=== PATIENT | female | born 1940 | race Caucasian/White ===

== ENCOUNTER 2022-02-04 10:03 | Outpatient (CLI) | payer MEDICARE | END 2022-02-04 10:04 | disposition home or self-care (01) | LOC: BICRAD 10:03 | PROVIDERS: ATTEND Internal Medicine | DX: M25.461 Effusion, right knee (principal); Z96.651 Presence of right artificial knee joint ==

== ENCOUNTER 2022-02-16 14:52 | Outpatient (CLI) | payer MEDICARE | END 2022-02-16 14:53 | disposition home or self-care (01) | LOC: BICMAMMO 14:52 | PROVIDERS: ATTEND Internal Medicine | DX: Z13.820 Encounter for screening for osteoporosis (principal); Z78.0 Asymptomatic menopausal state; M85.852 Other specified disorders of bone density and structure, left thigh | CPT/HCPCS: 77080 ==

== ENCOUNTER 2022-04-15 13:41 | Inpatient (IN) | payer OTHER, MEDICARE ==
[2022-04-15 14:38] LABS: #Basophils 0.1 thou/uL (0.0-0.2); #Eosinphils 0.1 thou/uL (0.0-0.7); #Lymphocytes 1.1 thou/uL (1.20-3.40); #Monocytes 0.6 thou/uL (0.11-0.59); #Neutrophils 7.5 thou/uL (1.40-6.50); %Basophils 0.6 % (0.0-1.0); %Eosinophils 0.8 % (0.0-10.0); %Lymphocytes 11.8 % (21.0-51.0); %Monocytes 6.7 % (0.0-10.0); %Neutrophils 80.1 % (42.0-75.0); Hemoglobin 13.7 g/dL (12.0-16.0); Mean Corpuscular HGB CONC 34.7 g/dL (32.0-36.0); Mean Corpuscular Hemoglobin 34.5 pg (27.0-31.0); Mean Corpuscular Volume 99.4 fl (78.0-98.0); Mean Platelet Volume 8.4 fL (7.4-10.4); Platelet Count 159 10x3/uL (130-400); RBC Distribution Width 12.3 % (11.5-14.5); Red Blood Cell (RBC) Count 3.98 mill/uL (4.20-5.40); White Blood Cell (WBC) Count 9.4 10x3/uL (4.8-10.8)
[2022-04-15] MEDS ORDERED: Ondansetron PF 4 MG/2 ML Vial ONE (14:38)
[2022-04-15] MEDS ORDERED: Morphine 4 MG/ML VIAL ONE (14:38)
[2022-04-15 14:47] LABS: INR-International Normal Ratio 0.9; PTT 32.9 sec (22.9-36.1); Prothrombin Time 12.8 sec (12.0-14.7)
[2022-04-15 14:57] LABS: ALT (SGPT) 22 U/L (8-55); AST (SGOT) 20 U/L (5-34); Albumin 4.3 g/dL (3.4-4.8); Alkaline Phosphatase 83 U/L (40-110); Anion Gap 12 mmol/L (10-20); BUN (Urea Nitrogen) 22 mg/dL (9.8-20.1); Bilirubin, Total 0.6 mg/dL (0.2-1.2); Calc. Creatinine Clearance 0 mL/min (70-130); Calcium 9.7 mg/dL (7.8-10.44); Carbon Dioxide 23 mmol/L (23-31); Chloride 108 mmol/L (98-107); Estimated GFR 79; Globulin 2.7 g/dL (2.4-3.5); Glucose 104 mg/dL (83-110); Potassium 4.1 mmol/L (3.5-5.1); Sodium 139 mmol/L (136-145)
[2022-04-15] MEDS ORDERED: Morphine 2 MG/ML VIAL SLOW IVP PRN (16:08)
[2022-04-15] MEDS ORDERED: hydrALAZINE 20 MG/ML VIAL SLOW IVP PRN (16:08)
[2022-04-15] MEDS ORDERED: TETANUS, DIPHTHERIA TOX,ADULT (TDVAX) 0.5 ML VIAL IM ONE (16:08)
[2022-04-15] MEDS ORDERED: Ipratropium/Albuterol 3 ML NEB NEB PRN (16:08)
[2022-04-15] MEDS ORDERED: Ondansetron PF 4 MG/2 ML Vial IVP PRN (16:08)
[2022-04-15] MEDS ORDERED: Ketorolac Tromethamine 30 MG/ML VIAL IVP SCH ×2 (16:15→18:30)
[2022-04-15] MEDS: Cholestyramine/Aspartame 4 gm Packet PO SCH ×2 (20:26→22:19)
[2022-04-15] MEDS: Sodium Chloride 0.9% 1,000 ML IV SCH (20:33)
[2022-04-15] MEDS: traMADol HCl 50 MG TAB PO SCH (20:34)
[2022-04-15] MEDS: Acetaminophen 500 MG TAB PO SCH (20:37)
[2022-04-15] MEDS: Senokot S 8.6-50 MG TAB PO SCH (20:40)
[2022-04-15] MEDS: Famotidine/PF 20 mg/2ml Vial SLOW IVP SCH (20:40)
[2022-04-16] MEDS: Acetaminophen 500 MG TAB PO SCH ×4 (01:14→18:26)
[2022-04-16] MEDS: traMADol HCl 50 MG TAB PO SCH ×4 (01:15→18:25)
[2022-04-16] MEDS: Sodium Chloride 0.9% 1,000 ML IV SCH ×2 (02:40→05:09)
[2022-04-16] MEDS: Ketorolac Tromethamine 30 MG/ML VIAL IVP SCH ×4 (02:44→20:15)
[2022-04-16 02:50] LABS: SARS-CoV-2 NAA Rapid Test Not Detected (NotDetected)
[2022-04-16 05:37] LABS: #Eosinphils 0.2 thou/uL (0.0-0.7); #Lymphocytes 1.2 thou/uL (1.20-3.40); #Monocytes 0.6 thou/uL (0.11-0.59); #Neutrophils 4.4 thou/uL (1.40-6.50); %Basophils 0.3 % (0.0-1.0); %Eosinophils 2.9 % (0.0-10.0); %Lymphocytes 18.8 % (21.0-51.0); %Monocytes 9.3 % (0.0-10.0); %Neutrophils 68.7 % (42.0-75.0); Hemoglobin 11.2 g/dL (12.0-16.0); Mean Corpuscular HGB CONC 34.3 g/dL (32.0-36.0); Mean Corpuscular Hemoglobin 34.3 pg (27.0-31.0); Mean Platelet Volume 8.5 fL (7.4-10.4); Platelet Count 130 10x3/uL (130-400); RBC Distribution Width 12.4 % (11.5-14.5); Red Blood Cell (RBC) Count 3.26 mill/uL (4.20-5.40); White Blood Cell (WBC) Count 6.5 10x3/uL (4.8-10.8)
[2022-04-16 06:10] LABS: Phosphorus 3.3 mg/dL (2.3-4.7)
[2022-04-16 06:12] LABS: Anion Gap 11 mmol/L (10-20); BUN (Urea Nitrogen) 22 mg/dL (9.8-20.1); Calc. Creatinine Clearance 76 mL/min (70-130); Calcium 8.8 mg/dL (7.8-10.44); Carbon Dioxide 22 mmol/L (23-31); Chloride 111 mmol/L (98-107); Estimated GFR 80; Glucose 94 mg/dL (83-110); Magnesium 1.8 mg/dL (1.6-2.6); Potassium 4.4 mmol/L (3.5-5.1); Sodium 140 mmol/L (136-145)
[2022-04-16] MEDS: Senokot S 8.6-50 MG TAB PO SCH ×3 (08:12→20:16)
[2022-04-16] MEDS: Amlodipine 5 MG TAB PO SCH (08:12)
[2022-04-16] MEDS: Famotidine/PF 20 mg/2ml Vial SLOW IVP SCH ×2 (08:13→20:16)
[2022-04-16] MEDS: Polyethylene Glycol 3350 17 GM Packet PO SCH (08:14)
[2022-04-16] MEDS ORDERED: CEFAZOLIN 2 GM in Sodium Chloride 0.9% 100 ML IVPB SCH (09:00)
[2022-04-16] MEDS: Cholestyramine/Aspartame 4 gm Packet PO SCH ×2 (11:01→21:40)
[2022-04-16] MEDS ORDERED: Fentanyl 250 MCG/5 ML VIAL ONE (11:57)
[2022-04-16] MEDS ORDERED: Ketamine 50 MG/ML (10ML VIAL) ONE (11:58)
[2022-04-16] MEDS ORDERED: CEFAZOLIN 2 GM VIAL ONE (12:03)
[2022-04-16] MEDS ORDERED: Sodium Chloride 0.9% 100 ML ONE (12:03)
[2022-04-16] MEDS ORDERED: Rocuronium Bromide 10 MG/ML (10ML VIAL) ONE (12:17)
[2022-04-16] MEDS ORDERED: PROPOFOL 200 MG/20 ML VIAL ONE (12:17)
[2022-04-16] MEDS ORDERED: Ondansetron PF 4 MG/2 ML Vial ONE (12:17)
[2022-04-16] MEDS ORDERED: Lidocaine 1% PF 5 ML VIAL ONE (12:17)
[2022-04-16] MEDS ORDERED: Morphine Sulfate 2 MG/ML SYRINGE SLOW IVP PRN (13:21)
[2022-04-16] MEDS ORDERED: Promethazine HCl 25 MG/ML VIAL IM PRN (13:21)
[2022-04-16] MEDS ORDERED: Promethazine HCl 25 MG/ML VIAL IVPB PRN (13:21)
[2022-04-16] MEDS ORDERED: HYDROmorphone 2 MG/ML VIAL SLOW IVP PRN (13:21)
[2022-04-16] MEDS ORDERED: Ondansetron HCl/PF 4 MG/2 ML Vial IVP PRN (13:21)
[2022-04-16] MEDS ORDERED: PACU-Morphine 4MG/ML VIAL SLOW IVP PRN (13:21)
[2022-04-16] MEDS ORDERED: SUGAMMADEX SODIUM 200 MG/2 ML VIAL ONE (13:29)
[2022-04-16] MEDS ORDERED: Ketorolac Tromethamine 30 MG/ML VIAL ONE (14:43)
[2022-04-16] MEDS ORDERED: Fentanyl 100 MCG/2 ML VIAL ONE (14:51)
[2022-04-16] MEDS: CEFAZOLIN 2 GM in Sodium Chloride 0.9% 100 ML IVPB SCH (20:16)
[2022-04-16] MEDS: Rosuvastatin 5 MG TAB PO SCH (20:16)
[2022-04-17] MEDS: Ketorolac Tromethamine 30 MG/ML VIAL IVP SCH (00:55)
[2022-04-17] MEDS: traMADol HCl 50 MG TAB PO SCH ×5 (00:55→23:30)
[2022-04-17] MEDS: Acetaminophen 500 MG TAB PO SCH ×5 (00:56→23:30)
[2022-04-17] MEDS: CEFAZOLIN 2 GM in Sodium Chloride 0.9% 100 ML IVPB SCH (05:42)
[2022-04-17 06:45] LABS: #Eosinphils 0.1 thou/uL (0.0-0.7); #Lymphocytes 0.4 thou/uL (1.20-3.40); #Monocytes 0.5 thou/uL (0.11-0.59); %Eosinophils 0.6 % (0.0-10.0); %Lymphocytes 3.2 % (21.0-51.0); %Monocytes 4.9 % (0.0-10.0); %Neutrophils 91.3 % (42.0-75.0); Hemoglobin 11.2 g/dL (12.0-16.0); Mean Corpuscular HGB CONC 34.2 g/dL (32.0-36.0); Mean Corpuscular Hemoglobin 34.6 pg (27.0-31.0); Mean Platelet Volume 8.8 fL (7.4-10.4); Platelet Count 128 10x3/uL (130-400); RBC Distribution Width 12.2 % (11.5-14.5); Red Blood Cell (RBC) Count 3.23 mill/uL (4.20-5.40); White Blood Cell (WBC) Count 10.9 10x3/uL (4.8-10.8)
[2022-04-17 06:52] LABS: Anion Gap 10 mmol/L (10-20); BUN (Urea Nitrogen) 15 mg/dL (9.8-20.1); Calc. Creatinine Clearance 79 mL/min (70-130); Calcium 8.4 mg/dL (7.8-10.44); Carbon Dioxide 24 mmol/L (23-31); Chloride 110 mmol/L (98-107); Estimated GFR 84; Glucose 150 mg/dL (83-110); Magnesium 1.7 mg/dL (1.6-2.6); Phosphorus 2.6 mg/dL (2.3-4.7); Potassium 3.9 mmol/L (3.5-5.1); Sodium 140 mmol/L (136-145)
[2022-04-17] MEDS ORDERED: Magnesium 2 GM/50 ML(in water) 2 GM in Premix Bag 1 BAG IVPB SCH (07:30)
[2022-04-17] MEDS: Senokot S 8.6-50 MG TAB PO SCH ×2 (09:04→20:15)
[2022-04-17] MEDS: Losartan 25 MG TAB PO SCH (09:04)
[2022-04-17] MEDS: Amlodipine 5 MG TAB PO SCH (09:05)
[2022-04-17] MEDS: Aspirin 81 mg Enteric Coated Tablet PO SCH ×2 (09:05→20:16)
[2022-04-17] MEDS: Famotidine/PF 20 mg/2ml Vial SLOW IVP SCH ×2 (09:05→20:14)
[2022-04-17] MEDS: Polyethylene Glycol 3350 17 GM Packet PO SCH (09:06)
[2022-04-17] MEDS: Cholestyramine/Aspartame 4 gm Packet PO SCH ×2 (09:06→21:45)
[2022-04-17] MEDS: traMADol HCl 50 MG TAB PO PRN (09:08)
[2022-04-17] MEDS: Rosuvastatin 5 MG TAB PO SCH (20:15)
[2022-04-18] MEDS: Acetaminophen 500 MG TAB PO SCH ×3 (05:27→18:39)
[2022-04-18] MEDS: traMADol HCl 50 MG TAB PO SCH ×3 (05:27→18:25)
[2022-04-18 07:07] LABS: #Eosinphils 0.4 thou/uL (0.0-0.7); #Lymphocytes 1.2 thou/uL (1.20-3.40); #Monocytes 0.8 thou/uL (0.11-0.59); #Neutrophils 6.7 thou/uL (1.40-6.50); %Eosinophils 4.1 % (0.0-10.0); %Lymphocytes 13.3 % (21.0-51.0); %Monocytes 8.7 % (0.0-10.0); %Neutrophils 73.9 % (42.0-75.0); Mean Corpuscular HGB CONC 33.2 g/dL (32.0-36.0); Mean Corpuscular Hemoglobin 33.8 pg (27.0-31.0); Mean Platelet Volume 8.6 fL (7.4-10.4); Platelet Count 126 10x3/uL (130-400); RBC Distribution Width 12.6 % (11.5-14.5); Red Blood Cell (RBC) Count 2.97 mill/uL (4.20-5.40); White Blood Cell (WBC) Count 9.1 10x3/uL (4.8-10.8)
[2022-04-18] MEDS ORDERED: Senokot S 8.6-50 MG TAB PO SCH (09:00)
[2022-04-18] MEDS ORDERED: Polyethylene Glycol 3350 17 GM Packet PO SCH (09:00)
[2022-04-18] MEDS ORDERED: Famotidine 20 MG TAB PO SCH (09:00)
[2022-04-18] MEDS: Amlodipine 5 MG TAB PO SCH (09:46)
[2022-04-18] MEDS: Aspirin 81 mg Enteric Coated Tablet PO SCH ×2 (09:47→21:37)
[2022-04-18] MEDS: Losartan 25 MG TAB PO SCH (09:50)
[2022-04-18] MEDS: Polyethylene Glycol 3350 17 GM Packet PO SCH (09:50)
[2022-04-18] MEDS: Senokot S 8.6-50 MG TAB PO SCH ×2 (09:50→21:37)
[2022-04-18] MEDS: Cholestyramine/Aspartame 4 gm Packet PO SCH ×2 (09:52→22:38)
[2022-04-18] MEDS: Rosuvastatin 5 MG TAB PO SCH (21:37)
[2022-04-19] MEDS: traMADol HCl 50 MG TAB PO SCH ×5 (00:29→23:23)
[2022-04-19] MEDS: Acetaminophen 500 MG TAB PO SCH ×5 (00:29→23:23)
[2022-04-19] MEDS: Polyethylene Glycol 3350 17 GM Packet PO SCH (08:56)
[2022-04-19] MEDS: Metoprolol Tartrate 25 MG TAB PO SCH (08:56)
[2022-04-19] MEDS: Senokot S 8.6-50 MG TAB PO SCH ×2 (08:57→20:59)
[2022-04-19] MEDS: Losartan 25 MG TAB PO SCH (08:57)
[2022-04-19] MEDS: Aspirin 81 mg Enteric Coated Tablet PO SCH ×2 (08:57→20:58)
[2022-04-19] MEDS ORDERED: Magnesium 2 GM/50 ML(in water) 2 GM in Premix Bag 1 BAG IVPB SCH (09:00)
[2022-04-19] MEDS ORDERED: Metoprolol Tartrate 50 MG TAB PO SCH (09:00)
[2022-04-19] MEDS: Cholestyramine/Aspartame 4 gm Packet PO SCH ×2 (10:14→23:22)
[2022-04-19] MEDS: traMADol HCl 50 MG TAB PO PRN ×2 (12:18→17:55)
[2022-04-19] MEDS: Rosuvastatin 5 MG TAB PO SCH (20:58)
[2022-04-19] MEDS: Famotidine 20 MG TAB PO SCH (20:59)
[2022-04-20] MEDS: Acetaminophen 500 MG TAB PO SCH ×3 (05:42→18:03)
[2022-04-20] MEDS: traMADol HCl 50 MG TAB PO SCH ×3 (05:42→18:03)
[2022-04-20] MEDS: Aspirin 81 mg Enteric Coated Tablet PO SCH ×2 (08:39→20:10)
[2022-04-20] MEDS: Famotidine 20 MG TAB PO SCH ×2 (08:39→20:10)
[2022-04-20] MEDS: Metoprolol Tartrate 25 MG TAB PO SCH (08:40)
[2022-04-20] MEDS: Losartan 25 MG TAB PO SCH (08:40)
[2022-04-20] MEDS: Polyethylene Glycol 3350 17 GM Packet PO SCH (08:46)
[2022-04-20] MEDS: Cholestyramine/Aspartame 4 gm Packet PO SCH ×2 (08:47→22:32)
[2022-04-20] MEDS: Senokot S 8.6-50 MG TAB PO SCH ×2 (08:47→20:11)
[2022-04-20] MEDS: Rosuvastatin 5 MG TAB PO SCH (20:11)
[2022-04-21] MEDS: Acetaminophen 500 MG TAB PO SCH ×4 (00:05→17:30)
[2022-04-21] MEDS: traMADol HCl 50 MG TAB PO SCH ×4 (00:05→17:27)
[2022-04-21] MEDS: Famotidine 20 MG TAB PO SCH ×2 (08:31→20:57)
[2022-04-21] MEDS: Senokot S 8.6-50 MG TAB PO SCH ×2 (08:31→20:58)
[2022-04-21] MEDS: Metoprolol Tartrate 25 MG TAB PO SCH (08:32)
[2022-04-21] MEDS: Losartan 25 MG TAB PO SCH (08:32)
[2022-04-21] MEDS: traMADol HCl 50 MG TAB PO PRN ×2 (08:32→20:57)
[2022-04-21] MEDS: Aspirin 81 mg Enteric Coated Tablet PO SCH ×2 (08:32→20:57)
[2022-04-21] MEDS: Polyethylene Glycol 3350 17 GM Packet PO SCH (08:35)
[2022-04-21] MEDS: Cholestyramine/Aspartame 4 gm Packet PO SCH ×2 (10:50→20:58)
[2022-04-21] MEDS: Rosuvastatin 5 MG TAB PO SCH (20:58)
[2022-04-22] MEDS: Acetaminophen 500 MG TAB PO SCH ×5 (00:37→18:29)
[2022-04-22] MEDS: traMADol HCl 50 MG TAB PO SCH ×5 (00:37→18:29)
[2022-04-22] MEDS ORDERED: traMADol HCl 50 MG TAB PO SCH (08:30)
[2022-04-22] MEDS: Senokot S 8.6-50 MG TAB PO SCH ×2 (09:12→20:46)
[2022-04-22] MEDS: Aspirin 81 mg Enteric Coated Tablet PO SCH ×2 (09:12→20:45)
[2022-04-22] MEDS: Famotidine 20 MG TAB PO SCH ×2 (09:12→20:45)
[2022-04-22] MEDS: Metoprolol Tartrate 25 MG TAB PO SCH (09:12)
[2022-04-22] MEDS: Losartan 25 MG TAB PO SCH (09:12)
[2022-04-22] MEDS: Polyethylene Glycol 3350 17 GM Packet PO SCH (09:21)
[2022-04-22] MEDS: Cholestyramine/Aspartame 4 gm Packet PO SCH ×2 (10:48→22:00)
[2022-04-22] MEDS: traMADol HCl 50 MG TAB PO PRN ×2 (16:18→20:46)
[2022-04-22] MEDS: Rosuvastatin 5 MG TAB PO SCH (20:46)
[2022-04-23] MEDS: Acetaminophen 500 MG TAB PO SCH ×4 (01:17→17:29)
[2022-04-23] MEDS: traMADol HCl 50 MG TAB PO SCH ×5 (01:17→23:13)
[2022-04-23] MEDS: Metoprolol Tartrate 25 MG TAB PO SCH (08:10)
[2022-04-23] MEDS: Senokot S 8.6-50 MG TAB PO SCH ×2 (08:10→20:20)
[2022-04-23] MEDS: Aspirin 81 mg Enteric Coated Tablet PO SCH ×2 (08:10→20:19)
[2022-04-23] MEDS: Famotidine 20 MG TAB PO SCH ×2 (08:11→20:19)
[2022-04-23] MEDS: Losartan 25 MG TAB PO SCH (08:11)
[2022-04-23] MEDS: Polyethylene Glycol 3350 17 GM Packet PO SCH (08:11)
[2022-04-23] MEDS: Cholestyramine/Aspartame 4 gm Packet PO SCH ×2 (09:03→21:17)
[2022-04-23] MEDS: Rosuvastatin 5 MG TAB PO SCH (20:20)
[2022-04-24] MEDS: Acetaminophen 500 MG TAB PO SCH ×4 (01:34→17:35)
[2022-04-24] MEDS: traMADol HCl 50 MG TAB PO SCH ×5 (01:34→23:29)
[2022-04-24] MEDS: Famotidine 20 MG TAB PO SCH ×2 (08:22→20:11)
[2022-04-24] MEDS: Aspirin 81 mg Enteric Coated Tablet PO SCH ×2 (08:22→20:11)
[2022-04-24] MEDS: Senokot S 8.6-50 MG TAB PO SCH ×2 (08:22→20:11)
[2022-04-24] MEDS: Metoprolol Tartrate 25 MG TAB PO SCH (08:23)
[2022-04-24] MEDS: Polyethylene Glycol 3350 17 GM Packet PO SCH (08:23)
[2022-04-24] MEDS: Losartan 25 MG TAB PO SCH (08:24)
[2022-04-24] MEDS: Cholestyramine/Aspartame 4 gm Packet PO SCH ×2 (09:19→22:04)
[2022-04-24] MEDS: Rosuvastatin 5 MG TAB PO SCH (20:11)
[2022-04-25] MEDS: Acetaminophen 500 MG TAB PO SCH ×4 (02:04→19:09)
[2022-04-25] MEDS: traMADol HCl 50 MG TAB PO SCH ×4 (05:17→23:23)
[2022-04-25] MEDS: Cholestyramine/Aspartame 4 gm Packet PO SCH ×2 (10:30→21:38)
[2022-04-25] MEDS: Senokot S 8.6-50 MG TAB PO SCH ×2 (10:31→21:04)
[2022-04-25] MEDS: Metoprolol Tartrate 25 MG TAB PO SCH (10:31)
[2022-04-25] MEDS: Aspirin 81 mg Enteric Coated Tablet PO SCH ×2 (10:31→21:04)
[2022-04-25] MEDS: Famotidine 20 MG TAB PO SCH ×2 (10:31→21:04)
[2022-04-25] MEDS: Losartan 25 MG TAB PO SCH (10:32)
[2022-04-25] MEDS: traMADol HCl 50 MG TAB PO PRN (10:37)
[2022-04-25] MEDS: Polyethylene Glycol 3350 17 GM Packet PO SCH (10:41)
[2022-04-25] MEDS: Rosuvastatin 5 MG TAB PO SCH (21:04)
[2022-04-26] MEDS: Acetaminophen 500 MG TAB PO SCH ×4 (03:03→17:44)
[2022-04-26] MEDS: traMADol HCl 50 MG TAB PO SCH ×3 (05:47→17:42)
[2022-04-26] MEDS: Senokot S 8.6-50 MG TAB PO SCH ×2 (08:26→21:44)
[2022-04-26] MEDS: Losartan 25 MG TAB PO SCH (08:27)
[2022-04-26] MEDS: Aspirin 81 mg Enteric Coated Tablet PO SCH ×2 (08:27→21:44)
[2022-04-26] MEDS: Metoprolol Tartrate 25 MG TAB PO SCH (08:27)
[2022-04-26] MEDS: Polyethylene Glycol 3350 17 GM Packet PO SCH (08:32)
[2022-04-26] MEDS: traMADol HCl 50 MG TAB PO PRN (08:55)
[2022-04-26] MEDS: Cholestyramine/Aspartame 4 gm Packet PO SCH ×2 (10:10→21:43)
[2022-04-26] MEDS: Rosuvastatin 5 MG TAB PO SCH (21:44)
[2022-04-27] MEDS: traMADol HCl 50 MG TAB PO SCH ×4 (00:09→18:23)
[2022-04-27] MEDS: Acetaminophen 500 MG TAB PO SCH ×4 (00:10→18:23)
[2022-04-27] MEDS: Metoprolol Tartrate 25 MG TAB PO SCH (10:19)
[2022-04-27] MEDS: Senokot S 8.6-50 MG TAB PO SCH ×2 (10:19→20:53)
[2022-04-27] MEDS: Aspirin 81 mg Enteric Coated Tablet PO SCH ×2 (10:19→20:53)
[2022-04-27] MEDS: Polyethylene Glycol 3350 17 GM Packet PO SCH ×2 (10:22→15:43)
[2022-04-27] MEDS: Losartan 25 MG TAB PO SCH (10:22)
[2022-04-27] MEDS: Cholestyramine/Aspartame 4 gm Packet PO SCH ×2 (10:23→20:53)
[2022-04-27] MEDS: Rosuvastatin 5 MG TAB PO SCH (20:53)
[2022-04-28] MEDS: traMADol HCl 50 MG TAB PO SCH ×4 (02:14→18:26)
[2022-04-28] MEDS: Acetaminophen 500 MG TAB PO SCH ×4 (02:14→18:26)
[2022-04-28] MEDS: Metoprolol Tartrate 25 MG TAB PO SCH (11:04)
[2022-04-28] MEDS: Losartan 25 MG TAB PO SCH (11:04)
[2022-04-28] MEDS: Aspirin 81 mg Enteric Coated Tablet PO SCH ×2 (11:04→20:51)
[2022-04-28] MEDS: Polyethylene Glycol 3350 17 GM Packet PO SCH (11:04)
[2022-04-28] MEDS: Senokot S 8.6-50 MG TAB PO SCH ×2 (11:05→20:52)
[2022-04-28] MEDS: Cholestyramine/Aspartame 4 gm Packet PO SCH ×2 (12:52→20:52)
[2022-04-28 14:53] VITALS: BMI 28.8
[2022-04-28] MEDS: Rosuvastatin 5 MG TAB PO SCH (20:51)
[2022-04-29] MEDS: traMADol HCl 50 MG TAB PO SCH ×5 (00:15→23:23)
[2022-04-29] MEDS: Acetaminophen 500 MG TAB PO SCH ×5 (00:15→23:23)
[2022-04-29] MEDS: Senokot S 8.6-50 MG TAB PO SCH ×2 (09:04→20:48)
[2022-04-29] MEDS: Aspirin 81 mg Enteric Coated Tablet PO SCH ×2 (09:05→20:48)
[2022-04-29] MEDS: Metoprolol Tartrate 25 MG TAB PO SCH (09:05)
[2022-04-29] MEDS: Losartan 25 MG TAB PO SCH (09:06)
[2022-04-29] MEDS: Polyethylene Glycol 3350 17 GM Packet PO SCH (14:55)
[2022-04-29] MEDS: Cholestyramine/Aspartame 4 gm Packet PO SCH ×2 (14:55→20:48)
[2022-04-29] MEDS: Rosuvastatin 5 MG TAB PO SCH (20:48)
[2022-04-30] MEDS: traMADol HCl 50 MG TAB PO SCH ×3 (05:42→19:40)
[2022-04-30] MEDS: Acetaminophen 500 MG TAB PO SCH ×3 (05:42→19:40)
[2022-04-30] MEDS: Senokot S 8.6-50 MG TAB PO SCH (10:23)
[2022-04-30] MEDS: Aspirin 81 mg Enteric Coated Tablet PO SCH ×2 (10:23→20:46)
[2022-04-30] MEDS: Polyethylene Glycol 3350 17 GM Packet PO SCH (10:24)
[2022-04-30] MEDS: Metoprolol Tartrate 25 MG TAB PO SCH (10:24)
[2022-04-30] MEDS: Cholestyramine/Aspartame 4 gm Packet PO SCH ×2 (10:25→20:46)
[2022-04-30] MEDS: Losartan 25 MG TAB PO SCH (10:30)
[2022-04-30] MEDS: Rosuvastatin 5 MG TAB PO SCH (20:46)
[2022-05-01] MEDS: traMADol HCl 50 MG TAB PO SCH ×5 (01:06→20:45)
[2022-05-01] MEDS: Acetaminophen 500 MG TAB PO SCH ×4 (01:07→16:55)
[2022-05-01] MEDS: Metoprolol Tartrate 25 MG TAB PO SCH (09:03)
[2022-05-01] MEDS: Aspirin 81 mg Enteric Coated Tablet PO SCH ×2 (09:03→20:43)
[2022-05-01] MEDS: Senokot S 8.6-50 MG TAB PO SCH ×2 (09:03→20:43)
[2022-05-01] MEDS: Losartan 25 MG TAB PO SCH (09:03)
[2022-05-01] MEDS: Polyethylene Glycol 3350 17 GM Packet PO SCH (09:09)
[2022-05-01] MEDS: Cholestyramine/Aspartame 4 gm Packet PO SCH ×2 (11:37→20:43)
[2022-05-01] MEDS: Rosuvastatin 5 MG TAB PO SCH (20:43)
[2022-05-02] MEDS: Acetaminophen 500 MG TAB PO SCH ×5 (00:36→23:10)
[2022-05-02] MEDS: traMADol HCl 50 MG TAB PO SCH ×4 (05:02→23:10)
[2022-05-02] MEDS: Polyethylene Glycol 3350 17 GM Packet PO SCH (08:10)
[2022-05-02] MEDS: Cholestyramine/Aspartame 4 gm Packet PO SCH ×2 (08:11→20:50)
[2022-05-02] MEDS: Losartan 25 MG TAB PO SCH (08:16)
[2022-05-02] MEDS: Aspirin 81 mg Enteric Coated Tablet PO SCH ×2 (08:16→20:49)
[2022-05-02] MEDS: Metoprolol Tartrate 25 MG TAB PO SCH (08:16)
[2022-05-02] MEDS: Senokot S 8.6-50 MG TAB PO SCH ×2 (08:17→20:49)
[2022-05-02] MEDS: Rosuvastatin 5 MG TAB PO SCH (20:49)
[2022-05-03] MEDS: Acetaminophen 500 MG TAB PO SCH (06:29)
[2022-05-03] MEDS: traMADol HCl 50 MG TAB PO SCH (06:29)
[2022-05-03 07:27] VITALS: BP 134/71; TEMP 97.7
[2022-05-03] MEDS: Aspirin 81 mg Enteric Coated Tablet PO SCH (10:28)
[2022-05-03] MEDS: Losartan 25 MG TAB PO SCH (10:28)
[2022-05-03] MEDS: Senokot S 8.6-50 MG TAB PO SCH (10:29)
[2022-05-03] MEDS: Polyethylene Glycol 3350 17 GM Packet PO SCH (10:29)
[2022-05-03] MEDS: Metoprolol Tartrate 25 MG TAB PO SCH (10:29)
[2022-05-03] MEDS: Cholestyramine/Aspartame 4 gm Packet PO SCH (10:30)
== END 2022-05-03 12:04 | DRG 522 ==
LOC: ERS 13:41 → SURG A 16:08
PROVIDERS: ADMIT Surgery; ATTEND Surgery
PROC: 0SRS019 Replacement of Left Hip Joint, Femoral Surface with Metal Synthetic Substitute, Cemented, Open Approach (ICD-10-PCS; principal; 2022-04-16)
DX: S72.012A Unspecified intracapsular fracture of left femur, initial encounter for closed fracture (principal); D62 Acute posthemorrhagic anemia; Z66 Do not resuscitate; Z20.822 Contact with and (suspected) exposure to COVID-19; Z23 Encounter for immunization; I10 Essential (primary) hypertension; E78.5 Hyperlipidemia, unspecified; I08.0 Rheumatic disorders of both mitral and aortic valves; Z96.653 Presence of artificial knee joint, bilateral; W01.0XXA Fall on same level from slipping, tripping and stumbling without subsequent striking against object, initial encounter; Y92.003 Bedroom of unspecified non-institutional (private) residence as the place of occurrence of the external cause; Z98.1 Arthrodesis status; Z90.49 Acquired absence of other specified parts of digestive tract; Z79.899 Other long term (current) drug therapy; Z79.82 Long term (current) use of aspirin
CPT/HCPCS: 36415; 72170; 72192; 80048; 80053; 83735; 84100; 85025; 85610; 85730; 87811; 88304; 90714; 96374; 96375; C1713; C1776; G0390; J1642; J1885; J2270; J2405; J2704; J3010; J3475; J3490; J7050; L1930; S0028; U0002

== ENCOUNTER 2022-06-16 13:31 | Outpatient (CLI) | payer MEDICARE | END 2022-06-16 13:32 | disposition home or self-care (01) | LOC: ULT 13:31 | PROVIDERS: ATTEND Internal Medicine | DX: E04.2 Nontoxic multinodular goiter (principal) | CPT/HCPCS: 76536 ==

== ENCOUNTER 2023-02-01 13:57 | Outpatient (CLI) | payer MEDICARE | END 2023-02-01 13:58 | disposition home or self-care (01) | LOC: BICULT 13:57 | PROVIDERS: ATTEND Internal Medicine | DX: E04.1 Nontoxic single thyroid nodule (principal) | CPT/HCPCS: 76536 ==

== ENCOUNTER 2025-01-09 10:39 | Emergency (ER) | payer OTHER ==
[2025-01-09] MEDS ORDERED: HYDROcodone/Acetaminophen 5/325 mg Tablet ONE (12:39)
== END 2025-01-09 14:41 | disposition home or self-care (01) ==
LOC: ERS 10:39
DX: M25.551 Pain in right hip (principal); I10 Essential (primary) hypertension; W05.0XXA Fall from non-moving wheelchair, initial encounter; Z79.899 Other long term (current) drug therapy
CPT/HCPCS: 72131; 72192